=== PATIENT | female | born 1950 | race African-American/Black ===

== ENCOUNTER → 2019-06-20 | Outpatient (CLI) | payer MEDICARE, OTHER ==
[~2019-06-20] MED LIST: ADVAIR 250/501 PUFFS INH; ATORVASTATIN CA10 MG ORAL; CARISOPRODOL350 MG ORAL; CHLORDIAZEPO-A1 EACH PO; COLACE100 MG ORAL; DALIRESP500 MCG PO; HYDROCODON-ACE1 EAC8 ORAL; IRON325 M1 PO; LEVAQUIN500 MG ORAL; NEXIUM40 MG ORAL; NITROFURANTOIN100 M2 ORAL; NORCO1 E1 ORAL; PLAVIX75 MG ORAL; PRILOSEC OTC20 MG ORAL; PRO AIR INHALER BC; REVATIO20 MG ORAL; SENSIPAR30 MG ORAL; SPIRIVA18 MCG INH
--- NOTE | 2019-06-20 15:03 | Diagnostic Imaging Report ---
Indication: Chronic low back pain Technique: Sagittal T1 and T2 fast spin echo, sagittal STIR, axial T1 and T2 fast spin-echo images of the lumbar spine Comparison: none Findings: There is very slight anterior displacement of L4 on L5. Otherwise normal bony alignment. Vertebral body heights are preserved. The conus medullaris terminates at the L1-2 level. At L3-4, there is very mild circumferential annular bulge. There is mild degenerative disc narrowing This, in combination with facet and ligamentum flavum hypertrophy, results in mild to moderate narrowing of the spinal canal at this level. There is mild narrowing of the neural foramina at this level. At L4-5, there is mild anterior offset without evidence of pars defect. There is moderate degenerative disc narrowing. Small amount of fluid is seen within the disc. The alignment abnormality in combination with facet and ligamentum flavum hypertrophy results in moderate narrowing of the spinal canal, minimum AP dimension 7 mm, minimal transverse dimension 8 mm. This is exacerbated by segmental flavum hypertrophy. There is mild compromise of the bilateral neural foramina, predominantly as a result of the alignment abnormality. At L1-S1, there is mild degenerative disc narrowing. Some fluid is seen within the disc. No significant disc bulge or protrusion, spinal stenosis, or neural foraminal stenosis. At the remaining disc levels, no significant disc bulge or protrusion, spinal stenosis, or neural foraminal narrowing. The included extra spinal soft tissues are remarkable for the presence of bilateral renal cysts. Impression: No acute abnormality Multilevel degenerative changes, as detailed above Incidental finding bilateral renal cysts
--- NOTE | 2019-06-20 15:11 | Diagnostic Imaging Report ---
Indication: Chronic neck pain Technique: Sagittal T1 FLAIR PROPELLER, sagittal T2 PROPELLOR, sagittal STIR, axial T2 PROPELLER, axial 3D COSMIC ASPIR images were obtained through the cervical spine Comparison: none Findings: There is reversal of the upper cervical normal lordosis. Otherwise normal bony alignment. Vertebral body heights are preserved. The vertebral body marrow signal is normal. Intrinsic cord signal is normal At C2-3, no significant disc bulge or protrusion, spinal stenosis, or neural foraminal stenosis. At C3-4, there is mild degenerative disc narrowing. Mild circumferential annular bulge in combination with short pedicles results in borderline narrowing of the spinal canal. There is mild to moderate right, moderate left neural foraminal stenosis there is mild to moderate degenerative disc narrowing. At C4-5, there is moderate degenerative disc narrowing. Mild circumferential annular bulge and short pedicles results in mild narrowing of the spinal canal. There is mild to moderate bilateral neural foraminal stenosis. At C5-6, there is moderate degenerative disc narrowing. No significant disc bulge or protrusion or spinal stenosis. There is mild right and moderate left neural foraminal narrowing. At C6-7, there is mild degenerative disc narrowing. There is circumferential annular bulge. However, this does not appear to significantly narrow the spinal canal. There is mild to moderate bilateral neural foraminal stenosis. At C7-T1, no significant disc bulge or protrusion, spinal stenosis, or neural foraminal stenosis. The surrounding soft tissues are unremarkable Impression: No acute process Degenerative changes, as detailed on a level basis above
== END | disposition home or self-care (01) ==
LOC: MRI 07:58
DX: G89.29 Other chronic pain (principal); M54.9 Dorsalgia, unspecified; M54.2 Cervicalgia; N20.0 Calculus of kidney
CPT/HCPCS: 72141; 72148